=== PATIENT | male | born 1970 | race Caucasian/White ===

== ENCOUNTER 2021-06-01 08:15 | Observation (INO) | payer BC ==
[~2021-06-01] VITALS: Ht 188 cm; Wt 79.4 kg
[2021-06-01 09:16] LABS: RED BLOOD COUNT 4.64 M/UL (4.20-5.50); WHITE BLOOD COUNT 11.1 K/UL (4.5-11.0)
[2021-06-01 09:44] LABS: BUN/CREATININE RATIO 10 (0-10)
[2021-06-01] MEDS ORDERED: ZOLOFT100 MG PO (10:49)
[2021-06-01] MEDS ORDERED: TRAZODONE HCL50 MG PO (10:49)
[2021-06-01] MEDS ORDERED: DAILY VALUE1 EACH PO (10:50)
[2021-06-02 06:56] LABS: HEMOGLOBIN 13.3 gm/dl (14.0-17.5); RED BLOOD COUNT 4.25 M/UL (4.20-5.50)
[2021-06-02 07:03] LABS: WHITE BLOOD COUNT 8.1 K/UL (4.5-11.0)
[2021-06-02 07:17] LABS: BUN/CREATININE RATIO 14 (0-10)
[2021-06-03 04:03] LABS: HEMOGLOBIN 12.6 gm/dl (14.0-17.5); RED BLOOD COUNT 4.01 M/UL (4.20-5.50); WHITE BLOOD COUNT 6.9 K/UL (4.5-11.0)
[2021-06-03 04:44] LABS: BUN/CREATININE RATIO 12 (0-10)
[2021-06-03] MEDS ORDERED: BACTRIM DS TAB1 EACH PO (11:18)
[2021-06-03] MEDS ORDERED: CLEOCIN HCL300 MG PO (11:18)
== END 2021-06-03 12:11 | disposition home or self-care (01) ==
LOC: ER1 08:15 → CDU 10:15 → MED SURG 4 10:15
PROVIDERS: Emergency Medicine; Physician Assistant; ADMIT Internal Medicine
DX: L03.113 Cellulitis of right upper limb (principal); L02.413 Cutaneous abscess of right upper limb; F32.A Depression, unspecified; F41.9 Anxiety disorder, unspecified; Z72.0 Tobacco use; Z20.822 Contact with and (suspected) exposure to COVID-19
CPT/HCPCS: 10060; 36415; 80048; 80053; 80202; 85025; 85652; 86140; 87040; 96374; 96375; 96376; 99284; G0378; J0696; J3370; J7070; U0002

== ENCOUNTER → 2021-08-21 | Outpatient (CLI) | payer BC ==
[~2021-08-21] MED LIST: BACTRIM DS TAB1 EACH PO; CLEOCIN HCL300 MG PO; DAILY VALUE1 EACH PO; TRAZODONE HCL50 MG PO; ZOLOFT100 MG PO
== END ==
LOC: KOH-I 14:40
DX: R76.12 Nonspecific reaction to cell mediated immunity measurement of gamma interferon antigen response without active tuberculosis (principal)
CPT/HCPCS: 71046